=== PATIENT | male | born 2000 | race Caucasian/White ===

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

== ENCOUNTER 2022-08-27 17:40 | Emergency (ER) | payer BC, OTHER ==
[2022-08-27] MEDS ORDERED: Lidocaine 1% PF 2 ML SDV INJECT ONE (17:52)
[2022-08-27] MEDS ORDERED: Diphtheria,Pertussis(Acell),Tetanus Vaccine 0.5 ML Syringe IM ONE (18:33)
== END 2022-08-27 19:27 | disposition home or self-care (01) ==
LOC: MW.ED 17:40
DX: S61.216A Laceration without foreign body of right little finger without damage to nail, initial encounter (principal); Z23 Encounter for immunization; W22.8XXA Striking against or struck by other objects, initial encounter; Y93.02 Activity, running
CPT/HCPCS: 12001; 90471; 90715; 99282-25; 99283; J3490

== ENCOUNTER 2022-09-05 17:29 | Emergency (ER) | payer SELFPAY | END 2022-09-05 19:00 | disposition left against medical advice (07) | LOC: MW.ED 17:29 | DX: Z53.21 Procedure and treatment not carried out due to patient leaving prior to being seen by health care provider (principal) ==